=== PATIENT | male | born 1965 | race Caucasian/White ===

== ENCOUNTER 2017-01-09 18:00 | Inpatient (IN) | payer MEDICAID ==
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
--- NOTE | ~2017-01-09 | PN ---
Unit #: [id number] #: [id number] Patient: CHERYL RG [id number] [facility] [address] [place] [address] [id number] I MR#: [id number] NAME: CHERYL RG ROOM: [facility] Age: 51 Sex: M Admission Date: 01/09/2017 : 1965 Attending Physician: Zachary Parnell M.D. Admitting Physician: Zachary Parnell M.D. Primary Care Physician: Primary Care Physician Chasity GUTIERREZ PROGRESS NOTES DATE 01/11/2017 DISCUSSION The patient is abed today but awakens without difficulty. He is complaining of feeling "rough" with alcohol detox. The patient reports that he has been homeless for 6 to 8 months and is expressing interest in retirement placement. I will ask for internal medicine to see patient regarding complaints of diabetic neuropathic foot pain. Dictated by... Zachary Parnell M.D. CB/jamilah TD: 01/11/2017 15:14 JOB #: [id number] BRENDA PROGRESS NOTES Page 1 of 1 X Zachary Parnell MD PROGRESS NOTE
--- NOTE | ~2017-01-09 | HP ---
Unit #: [id number] #: [id number] Patient: YONATHAN RG [id number] [place] [address] [id number] MR#: [id number] NAME: YONATHAN RG ROOM: P182 Age: 51 Sex: M Admission Date: 01/09/2017 : 1965 Attending Physician: Zachary Parnell M.D. Admitting Physician: Zachary Parnell M.D. Primary Care Physician: Primary Care Physician No HISTORY AND PHYSICAL HISTORY OF PRESENT ILLNESS Yonathan is a 51 year old admitted to [facility] because of his abuse of alcohol. He is detoxing. PAST MEDICAL HISTORY 1. Long history of alcohol abuse 2. History of withdrawal seizures. 3. COPD. 4. Diabetes mellitus. PAST SURGICAL HISTORY Facial reconstruction ALLERGIES No known drug allergies. SOCIAL HISTORY Smokes greater than one pack per day. Drinks a fifth plus a case of beer on a daily basis and denies illicit drug use. FAMILY HISTORY Medically noncontributory. REVIEW OF SYSTEMS CONSTITUTIONAL: No fever or chills. HEENT: Denies any sore throat, ear pain or runny nose. CARDIOVASCULAR: Denies chest pain, irregular heart rhythm or palpitations. CHEST: Denies shortness of breath or cough. No hemoptysis. GASTROINTESTINAL: Denies nausea, vomiting, diarrhea or chronic constipation. ENDOCRINE: Denies history of increased thirst or urination. No recent significant weight loss or gain. GENITOURINARY: Denies dysuria, frequency, or hematuria. SKIN: Denies any rashes. HEMATOLOGIC: Denies history of increased bleeding or bruising. MUSCULOSKELETAL: Denies any hot, swollen joints. No generalized muscle pain. NEUROLOGIC: Denies problems with vision or speech. No frequent, severe headaches. No numbness, tingling or weakness in any extremities. Denies loss of bladder or bowel control. CURRENT MEDICATIONS Unit #: [id number] #: [id number] Patient: YONATHAN RG 1. Detox protocol 2. NovoLog per sliding scale PHYSICAL EXAMINATION GENERAL: Alert, well-nourished, in no apparent distress. VITAL SIGNS: Blood pressure 110/76, heart rate 78, respirations 16, temperature 98.6. WEIGHT: 205 pounds. HEIGHT: 6'2". SKIN: Warm and dry without rash or lesion. HEENT: Normocephalic. TMs not viewed. Oral and nasal passages clear. Conjunctivae clear. Pupils equal, round and reactive to light and accommodation. Extraocular movements intact. NECK: Supple without lymphadenopathy or thyromegaly. HEART: Regular rate and rhythm without murmur. LUNGS: Clear. ABDOMEN: Soft, nontender. : Not done. EXTREMITIES: No evidence of cyanosis, clubbing or edema. Moves all extremities without focal deficit. NEUROLOGICAL: Grossly within normal limits. Cranial Nerves: II: Visual albright are intact. III, IV AND : Extraocular movements are intact. Pupils are equal, round and reactive to light. V: Facial sensation is grossly normal. VII: Facial movements and expression are normal. VIII: Auditory acuity grossly intact. IX, X: Uvula is midline. Phonation is normal. XI: Patient shrugs shoulders and turns head normally. XII: Tongue protrudes in the midline. Sensory and Motor Function: Sensory and motor sensation is grossly normal. Motor: moves all extremities well. Coordination: Gait is normal. Deep Tendon Reflexes: Intact. IMPRESSION Psychiatric admission RECOMMENDATIONS PSYCHIATRIC: Per psychiatrist. MEDICAL: 1. I see no contraindications to participating in facility's activities. 2. Monitor Accu-Cheks. 3. Continue sliding scale. MEDICAL PROGNOSIS Good. MEDICAL CONDITION Stable. Dictated by... Linn Dee P.A.-C. for Chalino Ha/sammie Unit #: [id number] #: [id number] Patient: YONATHAN RG TD: 01/10/2017 21:56 JOB #: [id number] HISTORY AND PHYSICAL Page 1 of 1 X Linn Dee HISTORY AND PHYSICAL
--- NOTE | ~2017-01-09 | DS ---
Unit #: [id number] #: [id number] Patient: CHERYL RG [id number] [facility] [address] [place] [address] [id number] I MR#: [id number] NAME: CHERYL RG ROOM: [facility] Age: 51 Sex: M Admission Date: 01/09/2017 : 1965 Discharge Date: 01/12/2017 Attending Physician: Zachary Parnell M.D. Primary Care Physician: Primary Care Physician No DISCHARGE SUMMARY REASON FOR ADMISSION The patient is a 50-year-old white male, admitted to the [facility] unit for alcohol detox. HOSPITAL COURSE The patient was admitted to the [facility] unit and placed on alcohol detox protocol. Ms. Dee followed the patient regarding his diabetic status. The patient's detox was fairly uneventful. He exhibited little in the way of signs or symptoms of withdrawal. By 01/12/2017, he was requesting discharge and it was so ordered. FINAL DIAGNOSES Alcohol use disorder, diabetes mellitus, diabetic peripheral neuropathy. DISPOSITION ON DISCHARGE The patient is discharged on the following medications: NovoLog sliding scale t.i.d. daily with meals for diabetic management. DISCHARGE INSTRUCTIONS No dietary or physical restrictions were placed on the patient at the time of discharge. FOLLOWUP Followup will take place through the auspices of community mental health resources. PROGNOSIS The patient's prognosis is considered fair. Dictated by... Zachary Parnell M.D. CB/rhonda TD: 01/12/2017 15:07 JOB #: [id number] Unit #: [id number] #: [id number] Patient: CHERYL RG DISCHARGE SUMMARY Page 1 of 1 X Zachary Parnell MD X DISCHARGE SUMMARY
== END 2017-01-12 16:15 | disposition home or self-care (01) | DRG 897 ==
LOC: P1E 23:08
PROC: HZ2ZZZZ Detoxification Services for Substance Abuse Treatment (ICD-10-PCS; principal; 2017-01-09)
DX: F10.10 Alcohol abuse, uncomplicated (principal); E11.42 Type 2 diabetes mellitus with diabetic polyneuropathy; J44.9 Chronic obstructive pulmonary disease, unspecified; F17.210 Nicotine dependence, cigarettes, uncomplicated; Z59.0 Homelessness; Z79.4 Long term (current) use of insulin
CPT/HCPCS: 82947

== ENCOUNTER 2017-02-07 02:31 | Inpatient (IN) | payer MEDICAID ==
--- NOTE | ~2017-02-07 | CO ---
Unit #: [id number] #: [id number] Patient: YONATHAN RG [id number] [place] [address] [id number] MR#: [id number] NAME: YONATHAN RG ROOM: [facility] Age: 51 Sex: M Admission Date: 02/07/2017 : 1965 Attending Physician: Denis Lindsey M.D. Primary Care Physician: Generic Doctor Not In System Consultation Date: 02/07/2017 CONSULTATION REPORT SUBJECTIVE Yonathan is a 51-year-old with history of diabetes mellitus. We have been asked to review his blood sugars and medications. The patient's Accu-Chek on admission was greater than 250. He was started on our routine sliding scale provided a no concentrated sweet diet and started on Levemir 10 units q.h.s. We will continue to monitor Accu-Cheks and adjust medications accordingly. Dictated by... Leola De La TorreAHeidi. for Chalino Ha/rhonda TD: 02/08/2017 02:23 JOB #: [id number] CONSULTATION REPORT Page 1 of 1 X Linn Dee CONSULTATION REPORT
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
--- NOTE | ~2017-02-07 | HP ---
Unit #: [id number] #: [id number] Patient: YONATHAN RG [id number] [facility] [address] [place] [address] [id number] MR#: [id number] NAME: YONATHAN RG ROOM: [facility] Age: 51 Sex: M Admission Date: 02/07/2017 : 1965 Attending Physician: Denis Lindsey M.D. Admitting Physician: Denis Lindsey M.D. Primary Care Physician: Generic Doctor Not In System HISTORY AND PHYSICAL HISTORY OF PRESENT ILLNESS Yonathan is a 51 year old, admitted to [facility] because of his continued abuse of alcohol. The patient was seen and history and physical, dated 01/10/2017 was reviewed. This is current. No changes. Please see history and physical, dated 01/10/2017. Dictated by... Linn Dee P.A.-C. for Chalino Ha/elie TD: 02/07/2017 15:27 JOB #: [id number] HISTORY AND PHYSICAL Page 1 of 1 X Linn Dee HISTORY AND PHYSICAL
== END 2017-02-10 14:40 | disposition home or self-care (01) | DRG 897 ==
LOC: P2L 07:01 → P1E 02-09 13:03
PROC: HZ2ZZZZ Detoxification Services for Substance Abuse Treatment (ICD-10-PCS; principal; 2017-02-07)
DX: F10.239 Alcohol dependence with withdrawal, unspecified (principal); E11.42 Type 2 diabetes mellitus with diabetic polyneuropathy; F17.210 Nicotine dependence, cigarettes, uncomplicated; J44.9 Chronic obstructive pulmonary disease, unspecified
CPT/HCPCS: 82947; 86592